=== PATIENT | male | born 1995 | race Caucasian/White ===

== ENCOUNTER 2020-11-17 06:30 | Day surgery (SDC) | payer OTHER ==
[~2020-11-17] VITALS: Ht 175.3 cm; Wt 95.0 kg
[2020-11-17] MEDS ORDERED: EPINEPHRINE 1 MG/ML, 1ML ONE (06:46)
[2020-11-17] MEDS ORDERED: BACITRACIN OINT 500U/GM, 15 GM ONE (06:46)
[2020-11-17] MEDS ORDERED: EPINEPHRINE TOPICAL SOLN 1 MG/ML, 30ML ONE (06:46)
[2020-11-17] MEDS ORDERED: FLUORESCEIN SODIUM 500 MG/5 ML ONE (06:46)
[2020-11-17] MEDS ORDERED: LIDOCAINE/PF 1%, 30ML ONE (06:46)
[2020-11-17] MEDS ORDERED: ROCURONIUM 10MG/ML,5ML ONE (07:17)
[2020-11-17] MEDS ORDERED: PROPOFOL 10 MG/ML, 20ML ONE (07:17)
[2020-11-17] MEDS ORDERED: MIDAZOLAM 1 MG/ML, 2ML ONE (07:17)
[2020-11-17] MEDS ORDERED: CEFAZOLIN 1,000 MG ONE (07:17)
[2020-11-17] MEDS ORDERED: NEOSTIGMINE 1 MG/ML, 10ML ONE (07:17)
[2020-11-17] MEDS ORDERED: FENTANYL PF 250 MCG/5ML ONE (07:17)
[2020-11-17] MEDS ORDERED: GLYCOPYRROLATE 0.2MG/1ML, 5ML ONE (07:17)
[2020-11-17] MEDS ORDERED: [UNRECOGNIZED DRUG - REMARK] (07:20)
[2020-11-17 07:24] VITALS: BP 110/76
[2020-11-17] MEDS ORDERED: CHLORHEXIDINE 15 ML UDC ONE (07:26)
[2020-11-17] MEDS ORDERED: CHLORHEXIDINE 15 ML UDC PO ONE (07:30)
[2020-11-17] MEDS ORDERED: LACTATED RINGERS 1,000 ML IV SCH (07:30)
[2020-11-17] MEDS ORDERED: LABETALOL 5MG/ML, 20ML IV PRN (08:30)
[2020-11-17] MEDS ORDERED: HYDROmorphone 1 MG/ML, 1ML INJ IVPush PRN (08:30)
[2020-11-17] MEDS ORDERED: morphine SULFATE 10 MG/ML, 1ML IVPush PRN (08:30)
[2020-11-17] MEDS ORDERED: FENTANYL PF 100 MCG/2ML IV PRN (08:30)
[2020-11-17] MEDS ORDERED: ACETAMINOPHEN 325 MG TABLET PO PRN (08:30)
[2020-11-17] MEDS ORDERED: OXYcodone 5 MG/5 ML ORAL.SOL UDC PO PRN (08:30)
[2020-11-17] MEDS ORDERED: ONDANSETRON 2MG/ML, 2ML IVPush PRN (08:30)
[2020-11-17] MEDS ORDERED: MEPERIDINE/PF 25MG/0.5ML IVPush PRN (08:30)
[2020-11-17] MEDS ORDERED: hydrALAzine 20 MG/ML, 1ML IV PRN (08:30)
[2020-11-17] MEDS ORDERED: FENTANYL PF 100 MCG/2ML ONE ×2 (09:30→10:51)
[2020-11-17] MEDS ORDERED: OXYcodone 5 MG/5 ML ORAL.SOL UDC ONE (10:51)
[2020-11-17] MEDS ORDERED: ACETAMINOPHEN 650 MG/20.3 ML UDC ONE (10:51)
== END 2020-11-17 12:55 | disposition home or self-care (01) ==
LOC: OUT 06:30
PROVIDERS: ATTEND Otolaryngology
DX: J34.2 Deviated nasal septum (principal); J32.0 Chronic maxillary sinusitis; J32.1 Chronic frontal sinusitis; J32.2 Chronic ethmoidal sinusitis; F41.9 Anxiety disorder, unspecified; F32.9 Major depressive disorder, single episode, unspecified; F17.210 Nicotine dependence, cigarettes, uncomplicated; Z20.822 Contact with and (suspected) exposure to COVID-19; Z91.048 Other nonmedicinal substance allergy status
CPT/HCPCS: 30520; 31253; 31259; 31267; 87070; 87075; 87205; 87635; 88304; 88311; J0171; J0690; J2250; J2704; J2710; J3010; J7120; J7402

== ENCOUNTER 2020-11-24 08:37 | Day surgery (SDC) | payer OTHER ==
[~2020-11-24] VITALS: Ht 176.5 cm; Wt 84.7 kg
[2020-11-24 09:11] VITALS: BP 120/80
== END 2020-11-24 10:50 | disposition home or self-care (01) ==
LOC: OUT 08:37
PROVIDERS: ATTEND Otolaryngology
DX: J32.0 Chronic maxillary sinusitis (principal); J32.1 Chronic frontal sinusitis; J32.2 Chronic ethmoidal sinusitis; J34.2 Deviated nasal septum; J32.8 Other chronic sinusitis; F17.210 Nicotine dependence, cigarettes, uncomplicated; F12.90 Cannabis use, unspecified, uncomplicated; Z20.822 Contact with and (suspected) exposure to COVID-19